=== PATIENT | female | born 1985 | race Caucasian/White ===

== ENCOUNTER 2016-12-13 13:02 | Emergency (ER) | payer OTHER, MEDICAID ==
[~2016-12-13] VITALS: Ht 170.2 cm; Wt 97.1 kg
[~2016-12-13 13:02] MED LIST: BACTRIM DS 8001 TA1 PO; BENTYL10 MG PO; BENZONATATE100 MG PO; CARAFATE1 GM/10 ML PO; CLARITIN 10MG T10 MG PO; FLINTSTONES COM1 CTB PO; KEFLEX 500MG.500 MG PO; LABETALOL 100M100 MG PO; NOMEDS *; OMEPRAZOLE20 MG PO; PREDNISONE 10MG10 MG PO; PREDNISONE 20MG20 MG PO; PROPRANOLOL HCL20 MG PO; RANITIDINE HCL150 MG PO; SEPTRA DS 800 M1 TAB PO; ZANTAC 7575 MG PO
--- NOTE | 2016-12-13 13:45 | RADIOLOGY REPORT PS360 ---
WRIST-3 VIEWS-LT COMPARISON: Right wrist 06/22/2010 HISTORY: Left wrist pain after a fall TECHNIQUE: AP lateral and oblique views FINDINGS: There is no fracture or dislocation. The soft tissues are normal. The distal radius and ulna appear normal IMPRESSION: Negative left wrist
--- NOTE | 2016-12-13 14:02 | Urgent Treatment Center Report ---
History of Present Issue Date/Time Seen by Provider 12/13/16 4749 Visit Reason Pt arrived:Walked Presenting Problem:PT FELL ON HER THIS MORNING WHILE AT WORK AND IT PINNED HER LT ARM BETWEEN THE WALL AND MOP BUCKET Location if Accident:Work Onset of symptoms date/time:/ or onset unknown for:MEDICAL HX UNKNOWN Have you (or family members/close friends) recently traveled outside the [place]? N If Yes, where/when: Have you had exposure to infectious disease within the past month? TB? Other? Specify: Patient was at work this morning when she slipped and fell at work and when she landed her left arm was pinned between the wall and mop bucket Now she is having pain in her left wrist and forearm. State that she didnt see any bruising but they had her come down and be seen to make sure she was ok and did not break anything ALLERGIES Coded Allergies: oxycodone (From Percocet) (Intermediate, I-ITCHING 02/19/16) Home Medications Reported Medications Ranitidine Hcl (Ranitidine 150MG) 150 MG PO BID PED MULTIVIT #43/IRON FUMARATE (Flintstones Complete Chew Tab) 1 CTB PO DAILY Loratadine (Claritin 10MG) 10 MG PO DAILY #30 History Medical History General CAD? No Angina: No ID: No Hypertension? No Hyperlipidemia? No CHF? No DVT? No PE? No COPD? No Asthma? No Anemia? No GERD? No Gastric ulcers? No GI Bleed? No Hernia? No Thyroid Problems? No Hypothyroidism? No CVA? No Seizures? No Diabetes? No Renal Insuffiency? No UTI? No Stones? No BPH? No GB Disease: No Nephritic Syndrome? No Asplenia? No Hepatitis? No Sickle Cell Disease? No Arthritis? No Migraines? No Cataracts? No Glaucoma? No MRSA? No HIV? No TB? No Anxiety? No Depression? No Cancer? No More? No Immunization HX DT/Tetanus 1-4 YRS Flu Refused Pneumonia Refuses Surgical Hx Previous Surgery?Y BREAST REDUCTION WISDOM TEETH Social History Smoking Hx Smoker: Never Smoker Tobacco: No Alcohol Alcohol: No Review of Systems All Other Systems Reviewed and Negative Comment Pain in left wrist and forearm after falling earlier at work and landing on arm pinning it between wall and mop bucket Physical Exam Vital Signs Vital Signs Date Time Temp Pulse Resp B/P Pulse O2 O2 Flow FiO2 Ox Delivery Rate 12/13 1337 98.2 94 20 129/85 98 General Appearance normal appearance, no apparent distress Respiratory Status Yes: trachea midline, chest symmetrical, non tender chest. No: respiratory distress. Cardiovascular normal exam, regular rate/rhythm Extremities Tenderness noted left wrist and forearm, no contusion, no abrasion, no swelling, good pulses good cap refill Neurologic alert, normal exam, oriented x 3 Medical Decision Making LABS/Meds/Orders Pt receiving controlled substance in ED? No Results/Orders Orders Procedure Date/time Status UTC STABILIZE JOINT/AREA 12/13 1357 Active Departure Departure Time of Disposition 1359 Disposition DC Home or Self Care(routine) Clinical Impression Primary Impression: Arm injury Qualifiers: Encounter type: initial encounter Laterality: left Qualified Code: S49.92XA - Unspecified injury of left shoulder and upper arm, initial encounter Condition STABLE Patient Instructions How To Perform RICE (Rest, Ice, Compress, Elevate) Additional Instructions *RICE, Rest the extremity, Ice 15-20 minutes 3-4 times daily, Compress- wear the bismark wrap as discussed as much as possible to help reduce swelling and pain, Elevate the extremity when at rest *Bismark wrap is for support and help control swelling, use it except in the shower. Be sure that is not to tight but not to loose either *Elevate when resting *Ibuprofen 600-800mg every 6-8 hours as needed for pain an inflammation. If need something more can take Tylenol in between doses of Ibuprofen to help Immediately follow up for new or worsening of symptoms, or no noticeable improvement over the next 3-5 days Over the counter Motrin or Tylenol as needed for fever or pain Follow up with family doctor if needed Discharge Counseling Counseled pt/family regarding diagnosis, test results, home care, follow up needs at 1400
[2016-12-13 14:09] VITALS: BP 129/85
--- OUTSIDE RECORDS SUMMARY | 2016-12-19 13:53 | External Medical Summary Rpt | CCD ---
Author Author , KIESHA POP Address Unknown Phone [email or web address] Support Name Relationship Address Phone HANNAH, Next Of Kin [address] [phone] , [place] [address] Purpose Continuity of Care Document - 05-12-2012 through 2016 Allergies, Adverse Reactions, Alerts Type Drug Allergy Adverse Reaction to Substance Substance Reaction Severity Oxycodone Unknown Unknown Medications Na ND Rx Da Fi Fi Am Da Di Ph RX Ph St me C No te ll ll ou ys ag ar # ys at rm s nt no ma ic us Or Da si cy ia de te s n re d SO 00 09 0 No DI 40 -2 UM 97 2- Lo 98 20 ng CH 30 13 er LO 9 RI Ac DE ti ve 0. 9% SO МАРИЯ TI ON Sa 63 09 0 No li 80 -2 ne 70 2- Lo 10 20 ng Fl 07 13 er us 5 h Ac 10 ti ML ve Sy ri ng e ON 00 09 0 No DA 64 -2 NS 16 2- Lo ET 08 20 ng RO 02 13 er N 5 HC Ac L ti 4 ve MG /2 ML AL DI 51 09 0 No CY 07 -2 CL 90 2- Lo OM 11 20 ng IN 82 13 er E 0 10 Ac ti MG ve CA PS UL E BAILON 51 03 0 No LF 07 -0 AM 90 6- Lo ET 12 20 ng HO 82 13 er XA 0 ZO Ac LE ti -T ve MP DS TA BL ET PA 51 03 0 No OM 07 -0 ET 90 6- Lo MERAZ 89 20 ng ZI 52 13 er NE 0H Ac 25 ti MG ve TA BL ET TA KE Vital Signs 11-28-2012 23:53 Name Value Interpretat Reference Comment ion Range BP 73 mm[Hg] Diastolic BP Systolic 118 mm[Hg] Heart 102 /min Rate/Pulse O2% 95 % Respiratory 20 /min Rate 11-28-2012 23:10 Name Value Interpretat Reference Comment ion Range BP 77 mm[Hg] Diastolic BP Systolic 118 mm[Hg] Heart 102 /min Rate/Pulse O2% 95 % Respiratory 20 /min Rate 05-12-2012 23:00 Name Value Interpretat Reference Comment ion Range Body 98.6 [degF] Temperature 05-12-2012 22:49 Name Value Interpretat Reference Comment ion Range BP 81 mm[Hg] Diastolic BP Systolic 127 mm[Hg] Heart 77 /min Rate/Pulse O2% 99 % Respiratory 20 /min Rate 05-12-2012 22:03 Name Value Interpretat Reference Comment ion Range BP 71 mm[Hg] Diastolic BP Systolic 134 mm[Hg] Heart 103 /min Rate/Pulse O2% 99 % Respiratory 20 /min Rate Results Labs Lab Lab Date Result Refere Interp Status Commen Order Detail nces retati t Range on COMPREHENSIVE METABOLIC PANEL (11-28-2012 23:05) Glucose 107 74-106 complet 013 mg/dL ed Bld-mCn 23:05 c BUN 10 7-18 complet Bld-mCn 013 mg/dL ed c 23:05 Creat 0.8 0.6-1.0 complet SerPl-m 013 mg/dL ed Cnc 23:05 ESTIMAT 146 50-200 complet ED 013 ML/MIN ed CREATIN 23:05 INE CLEARAN CE GFR 87 59- complet (ESTIMA 013 ML/MIN ed CRISTY) 23:05 Sodium 139 136-145 complet SerPl-s 013 mmoL/L ed Cnc 23:05 Potassi 3.7 3.5-5.1 complet um 013 mmoL/L ed SerPl-s 23:05 Cnc Chlorid 104 98-107 complet e 013 mmoL/L ed SerPl-s 23:05 Cnc CO2 26 21.0-32 complet SerPl-s 013 mmoL/L .0 ed Cnc 23:05 Calcium 8.7 8.5-10. complet 013 mg/dL 1 ed SerPl-m 23:05 Cnc Prot 7.3 6.4-8.2 complet SerPl-m 013 gm/dL ed Cnc 23:05 Albumin 3.8 3.4-5.0 complet 013 gm/dL ed SerPl-m 23:05 Cnc Globuli 09-22-2 3.5 1.3-3.2 complet n 013 gm/dL ed Ser-mCn 23:05 c Albumin 11-28-2 1.1 UNK 1.1-1.8 complet /Glob 013 ed SerPl-m 23:05 Rto Bilirub 11-28-2 0.3 0.2-1.0 complet 013 mg/dL ed SerPl-m 23:05 Cnc AST 11-28-2 9 U/L 15-37 complet SerPl-c 013 ed Cnc 23:05 ALT 11-28-2 29 U/L 30-65 complet SerPl-c 013 ed Cnc 23:05 ALP 11-28- 200 U/L 50-136 complet SerPl-c 013 ed Cnc 23:05 LIPASE (11-28-2012 23:05) LIPASE 11-28- 83 U/L 73-393 complet 013 ed 23:05 CBC with AUTO DIFF (11-28-2012 23:05) WBC # 11-28-2 12.2 4.8-10. complet Bld 013 K/MM3 8 ed Auto 23:05 RBC # 11-28-2 5.03 4.2-5.4 complet Bld 013 M/mm3 ed Auto 23:05 Hgb 11-28-2 14.5 12.2-16 complet Bld-mCn 013 g/dL .2 ed c 23:05 Hct Fr 11-28- 42.4 % 37.0-47 complet Bld 013 .0 ed 23:05 MCV RBC 11-28-2 84.2 fl 82.2-97 complet 013 .8 ed 23:05 MCH RBC 11-28-2 28.8 pg 27-31.2 complet Qn 013 ed Auto 23:05 MEAN 11-28-2 34.2 31.8-35 complet CORPUSC 013 g/dl .4 ed ULAR 23:05 HGB CONC RDW RBC 11-28-2 14.3 % 11.5-17 complet Auto 013 .5 ed 23:05 Platele 11-28-2 194 142-424 complet t Bld 013 K/mm3 ed Ql 23:05 Manual MEAN 11-28-2 7.5 fl 7.4-10. complet PLATELE 013 4 ed T 23:05 VOLUME Granulo 11-28-2 85.5 % 37.0-80 complet cytes 013 .0 ed Fr Bld 23:05 Auto LYMPH % 09-22-2 8.8 % 10-50.0 complet 013 ed 23:05 Monocyt 09-22-2 4.1 % 1.7-9.3 complet es Fr 013 ed Bld 23:05 Auto Eosinop 09-22-2 1.3 % 0.1-12. complet hil Fr 013 0 ed Bld 23:05 Auto Basophi 09-22-2 0.3 % 0.1-2.0 complet ls Fr 013 ed Bld 23:05 Auto Granulo 09-22-2 10.4 1.8-7.8 complet cytes # 013 K/mm3 ed Bld 23:05 Auto Lymphoc 09-22-2 1.1 0.7-4.5 complet ytes Fr 013 K/mm3 ed Bld 23:05 Auto Monocyt -22-2 0.5 0.1-1.0 complet es # 013 K/mm3 ed Bld 23:05 Auto Eosinop 22-2 0.2 0.0-0.4 complet hil # 013 K/mm3 ed Bld 23:05 Auto Basophi 09-22-2 0.0 0-0.2 complet ls # 013 K/MM3 ed Bld 23:05 Auto B-HCG Ur Ql (11-28-2012 23:00) B-HCG 11-28-2 NEGATIV NEG complet Ur Ql 013 E ed 23:00 URINALYSIS/COMPLETE (11-28-2012 23:00) URINE 11-28-2 YELLOW YELLOW complet COLOR 013 ed 23:00 URINE 11-28-2 CLEAR CLEAR complet APPEARA 013 ed NCE 23:00 URINE 11-28-2 NEGATIV NEG complet GLUCOSE 013 E ed - 23:00 DIPSTIC K URINE 11-28-2 NEGATIV NEG complet BILIRUB 013 E ed IN - 23:00 DIPSTIC K URINE 11-28-2 NEGATIV NEG complet KETONE 013 E mg/dL ed 23:00 URINE 11-28-2 1.020 1.005-1 complet SPECIFI 013 UNK .030 ed C 23:00 GRAVITY URINE 11-28- NEGATIV NEG complet BLOOD 013 E ed 23:00 URINE 11-28-2 6.0 UNK 5.0-8.5 complet PH 013 ed 23:00 URINE NEGATIV NEG complet PROTEIN 013 E mg/dL ed - 23:00 DIPSTIC K URINE 0.2 NEG complet UROBILI 013 E.U./dL ed NOGEN - 23:00 DIPSTIC K URINE NEGATIV NEG complet NITRATE 013 E ed - 23:00 DIPSTIC K URINE NEGATIV NEG complet LEUK 013 E ed ESTERAS 23:00 E URINE 3-5 O complet WBC 013 wbc/hpf ed 23:00 COMPREHENSIVE METABOLIC PANEL (05-12-2012 22:00) Glucose 110 74-106 complet 013 mg/dL ed Bld-mCn 22:00 c BUN 9 mg/dL 7-18 complet Bld-mCn 013 ed c 22:00 Creat 0.6 0.6-1.0 complet SerPl-m 013 mg/dL ed Cnc 22:00 ESTIMAT 186 50-200 complet ED 013 ML/MIN ed CREATIN 22:00 INE CLEARAN CE GFR 123 59- complet (ESTIMA 013 ML/MIN ed CRISTY) 22:00 Sodium 140 136-145 complet SerPl-s 013 mmoL/L ed Cnc 22:00 Potassi 3.7 3.5-5.1 complet um 013 mmoL/L ed SerPl-s 22:00 Cnc Chlorid 107 98-107 complet e 013 mmoL/L ed SerPl-s 22:00 Cnc CO2 27 21.0-32 complet SerPl-s 013 mmoL/L .0 ed Cnc 22:00 Calcium 8.2 8.5-10. complet 013 mg/dL 1 ed SerPl-m 22:00 Cnc Prot 6.6 6.4-8.2 complet SerPl-m 013 gm/dL ed Cnc 22:00 Albumin 3.4 3.4-5.0 complet 013 gm/dL ed SerPl-m 22:00 Cnc Globuli 3.2 1.3-3.2 complet n 013 gm/dL ed Ser-mCn 22:00 c Albumin 1.1 UNK 1.1-1.8 complet /Glob 013 ed SerPl-m 22:00 Rto Bilirub 0.3 0.2-1.0 complet 013 mg/dL ed SerPl-m 22:00 Cnc AST 10 U/L 15-37 complet SerPl-c 013 ed Cnc 22:00 ALT 31 U/L 30-65 complet SerPl-c 013 ed Cnc 22:00 ALP 256 U/L 50-136 complet SerPl-c 013 ed Cnc 22:00 Amylase SerPl-cCnc (05-12-2012 22:00) Amylase 62 U/L 25-115 complet 013 ed SerPl-c 22:00 Cnc LIPASE (05-12-2012 22:00) LIPASE 76 U/L 73-393 complet 013 ed 22:00 CBC with AUTO DIFF (05-12-2012 22:00) WBC # 06-2 6.2 4.8-10. complet Bld 013 K/MM3 8 ed Auto 22:00 RBC # 05-12-2 4.74 4.2-5.4 complet Bld 013 M/mm3 ed Auto 22:00 Hgb 05-12-2 13.7 12.2-16 complet Bld-mCn 013 g/dL .2 ed c 22:00 Hct Fr 39.8 % 37.0-47 complet Bld 013 .0 ed 22:00 MCV RBC 05-12- 83.9 fl 82.2-97 complet 013 .8 ed 22:00 MCH RBC 06-2 28.8 pg 27-31.2 complet Qn 013 ed Auto 22:00 MEAN 05-12-2 34.4 31.8-35 complet CORPUSC 013 g/dl .4 ed ULAR 22:00 HGB CONC RDW RBC 06-2 13.2 % 11.5-17 complet Auto 013 .5 ed 22:00 Platele 216 142-424 complet t Bld 013 K/mm3 ed Ql 22:00 Manual MEAN 7.5 fl 7.4-10. complet PLATELE 013 4 ed T 22:00 VOLUME Granulo 03-06-2 62.7 % 37.0-80 complet cytes 013 .0 ed Fr Bld 22:00 Auto LYMPH % -06-2 29.3 % 10-50.0 complet 013 ed 22:00 Monocyt 06-2 5.8 % 1.7-9.3 complet es Fr 013 ed Bld 22:00 Auto Eosinop -06-2 1.9 % 0.1-12. complet hil Fr 013 0 ed Bld 22:00 Auto Basophi 06-2 0.3 % 0.1-2.0 complet ls Fr 013 ed Bld 22:00 Auto Granulo -06-2 3.9 1.8-7.8 complet cytes # 013 K/mm3 ed Bld 22:00 Auto Lymphoc 06-2 1.8 0.7-4.5 complet ytes Fr 013 K/mm3 ed Bld 22:00 Auto Monocyt -06-2 0.4 0.1-1.0 complet es # 013 K/mm3 ed Bld 22:00 Auto Eosinop 06-2 0.1 0.0-0.4 complet hil # 013 K/mm3 ed Bld 22:00 Auto Basophi 03-06-2 0.0 0-0.2 complet ls # 013 K/MM3 ed Bld 22:00 Auto B-HCG Ur Ql (05-12-2012 21:25) B-HCG 05-12-2 NEGATIV NEG complet Ur Ql 013 E ed 21:25 URINALYSIS/COMPLETE (05-12-2012 21:25) URINE 05-12- YELLOW YELLOW complet COLOR 013 ed 21:25 URINE 05-12-2 CLEAR CLEAR complet APPEARA 013 ed NCE 21:25 URINE 05-12-2 NEGATIV NEG complet GLUCOSE 013 E ed - 21:25 DIPSTIC K URINE 05-12-2 NEGATIV NEG complet BILIRUB 013 E ed IN - 21:25 DIPSTIC K URINE 05-12-2 NEGATIV NEG complet KETONE 013 E mg/dL ed 21:25 URINE 05-12-2 Greater 1.005-1 complet SPECIFI 013 than .030 ed C 21:25 or GRAVITY equal to 1.030 URINE 05-12-2 NEGATIV NEG complet BLOOD 013 E ed 21:25 URINE 03-06-2 5.5 UNK 5.0-8.5 complet PH 013 ed 21:25 URINE 05-12-2 TRACE NEG complet PROTEIN 013 mg/dL ed - 21:25 DIPSTIC K URINE 05-12-2 0.2 NEG complet UROBILI 013 E.U./dL ed NOGEN - 21:25 DIPSTIC K URINE 2 NEGATIV NEG complet NITRATE 013 E ed - 21:25 DIPSTIC K URINE 2 1+ NEG complet LEUK 013 ed ESTERAS 21:25 E URINE 2 3-5 0 complet RBC 013 rbc/hpf ed 21:25 URINE 05-12-2 10-20 O complet WBC 013 wbc/hpf ed 21:25 URINE 05-12-2 3-5 0-5 complet SQUAMOU 013 #/hpf ed S CELLS 21:25 URINE 2 2+ O complet BACTERI 013 ed A 21:25 URINE 05-12-2 1+ OCC complet MUCUS 013 ed 21:25 Encounters Encounter Start End Date Code Location Performer Type Date Emergency SHERYL Sanchez MD (ER) 3 22:32 3 23:54 [facility] Emergency SHERYL Washington MD (ER) 3 21:28 3 23:02 [facility]
--- OUTSIDE RECORDS SUMMARY | 2016-12-19 13:53 | External Medical Summary Rpt | CCD ---
Author Author , KIESHA POP Address Unknown Phone [email or web address] Name Relationship Address Phone HANNAH, Next Of Kin [address] [phone] , [place] [address] Purpose Continuity of Care Document - 05-12-2012 [...] -T ve MP DS TA BL ET HI 51 03 0 No OM 07 -0 [...] Sanchez MD (ER) 3 22:32 3 23:54 [facility] Emergency SHERYL Washington MD (ER) 3 21:28 3 23:02 [facility]
--- OUTSIDE RECORDS SUMMARY | 2016-12-19 13:54 | External Medical Summary Rpt ---
Author Author IMELDAJUAN Quinn, KIESHA [facility] [employer] Address Unknown Phone Unavailable Results 25-Hydroxyvitamin D [Mass/volume] in Serum or Plasma Observa Value Referen Units Interpr Notes Date tion ce etation Range 25-Hydrox 30.0 - ng/mL Low Vitamin D Aug 22 yvitamin 100.0 2016 9:06 D deficienc AM [Mass/vol y has ume] in been Serum or defined Plasma by the [place] ofMedicin e and an Endocrine Society practice guideline as alevel of serum 25-OH vitamin D less than 20 ng/mL (1,2).The Endocrine Society went on to further define vitamin Dinsuffic iency as a level between 21 and 29 ng/mL (2).1. IOM (Institut e of Medicine) . 2010. Dietary reference intakes for calcium and D. [place]: TheNation al Academies Press.2. Heather MF, [place], Catarina Lester MERAZ, et al.Evalua tion, treatment , and preventio n of vitamin Ddeficien cy: an Endocrine Society clinical practiceg uideline. JCEM. 2010; 96(7):191 1-30.Perf ormed at: - [facility] [address] [address] [address] [place], [place] [id number] Machine Clerical Verifier: Fracisco Cuba PhD, Phone: [phone] Comprehensive metabolic 2000 panel in Serum or Plasma Observa Value Referen Units Interpr Notes Date tion ce etation Range Albumin/G 1.1 - 1.8 No Normal No Aug 22 lobulin informati informati 2016 9:06 [Mass on in on in AM ratio] in source source Serum or data data Plasma Albumin 3.4 - 5.0 gm/dL Normal No Aug 22 [Mass/vol informati 2017 9:06 ume] in on in AM Serum or source Plasma data Alkaline 46 - 116 U/L Normal No Aug 22 phosphata informati 2016 9:06 se on in AM [Enzymati source c data activity/ volume] in Serum or Plasma Bilirubin 0.2 - 1.0 mg/dL Normal No Aug 22 .total informati 2016 9:06 [Mass/vol on in AM ume] in source Serum or data Plasma Urea 7 - 18 mg/dL Normal No Aug 22 nitrogen informati 2017 9:06 [Mass/vol on in AM ume] in source Serum or data Plasma Calcium 8.5 - mg/dL Normal No Aug 22 [Mass/vol 10.1 informati 2016 9:06 ume] in on in AM Serum or source Plasma data Chloride 98 - 107 mmoL/L Normal No Aug 22 [Moles/vo informati 2016 9:06 lume] in on in AM Serum or source Plasma data Carbon 21.0 - mmoL/L Normal No Aug 22 dioxide, 32.0 informati 2016 9:06 total on in AM [Moles/vo source lume] in data Serum or Plasma Creatinin 0.55 - mg/dL Normal No Aug 22 e 1.02 informati 2016 9:06 [Mass/vol on in AM ume] in source Serum or data Plasma Estimated 59- ML/MIN No REFERENCE Aug 22 informati RANGE: 2017 9:06 glomerula on in >60 AM r source ML/MIN/1. filtratio data 73 SQUARE n rate METERSIf (GF this patient is -A merican, then multiply theresult by 1.210. Globulin 1.3 - 3.2 gm/dL High No Aug 22 [Mass/vol informati 2016 9:06 ume] in on in AM Serum source data Glucose 74 - 106 mg/dL Normal No Aug 22 [Mass/vol informati 2016 9:06 ume] in on in AM Serum or source Plasma data Potassium 3.5 - 5.1 mmoL/L Normal No Aug 22 informati 2016 9:06 [Moles/vo on in AM lume] in source Serum or data Plasma Sodium 136 - 145 mmoL/L Normal No Aug 22 [Moles/vo informati 2016 9:06 lume] in on in AM Serum or source Plasma data Aspartate 15 - 37 U/L Normal No Aug 22 informati 2016 9:06 aminotran on in AM sferase source [Enzymati data c activity/ volume] in Serum or Plasma Alanine 12 - 78 U/L Normal No Aug 22 aminotran informati 2016 9:06 sferase on in AM [Enzymati source c data activity/ volume] in Serum or Plasma Protein 6.4 - 8.2 gm/dL Normal No Aug 22 [Mass/vol informati 2016 9:06 ume] in on in AM Serum or source Plasma data Thyroxine (T4) free [Mass/volume] in Serum or Plasma Observa Value Referen Units Interpr Notes Date ti ce etation Range Thyroxine 0.76 - ng/dL Normal No Aug 22 (T4) 1.46 informati 2016 9:06 free on in AM [Mass/vol source ume] in data Serum or Plasma Thyrotropin [Units/volume] in Serum or Plasma Observa Value Referen Units Interpr Notes Date ti ce etation Range Thyrotrop 0.358 - uIU/ml No No Aug 22 in 3.740 informati informati 2016 9:06 [Units/vo on in on in AM lume] in source source Serum or data data Plasma
--- OUTSIDE RECORDS SUMMARY | 2016-12-19 13:54 | External Medical Summary Rpt | CCD ---
Author Author [employer] Organization [employer] Address Unknown Phone Unavailable Purpose Continuity of Care Document - through 2016
--- OUTSIDE RECORDS SUMMARY | 2016-12-19 13:54 | External Medical Summary Rpt | CCD ---
Author Author , KIESHA Organization KIESHA Address Unknown Phone [email or web address] Immunization Name Date Rout CVX Reac Dose Comm Prov Is Faci e tion ent ider Refu lity Give sed n Td 09- 9 999 Hist H149 No H149 (abrahan 9-20 oric lt), 03 al Info adso rmat rbed ion - Sour ce Unsp ecif ied Hep 02-2 8 999 Hist H149 No H149 B, 3-20 oric ped/ 01 al adol Info rmat ion - Sour ce Unsp ecif ied Hep 09-1 8 999 Hist H149 No H149 B, 8-20 oric ped/ 00 al adol Info rmat ion - Sour ce Unsp ecif ied MMR 08-1 3 999 Hist H149 No H149 7-20 oric 00 al Info rmat ion - Sour ce Unsp ecif ied Hep 08-1 8 999 Hist H149 No H149 B, 7-20 oric ped/ 00 al adol Info rmat ion - Sour ce Unsp ecif ied
--- OUTSIDE RECORDS SUMMARY | 2016-12-19 13:54 | External Medical Summary Rpt ---
Author Author IMELDAJUAN Quinn, KIESHA [employer] Address Unknown Phone Unavailable Results 25-Hydroxyvitamin D [Mass/volume] in Serum or Plasma Observa Value Referen Units Interpr Notes Date tion ce etation Range 25-Hydrox 30.0 - ng/mL Low Vitamin D Aug 22 yvitamin 100.0 2016 9:06 D deficienc AM [Mass/vol y has ume] in been Serum or defined Plasma by the [place] ofMedicin e and an Endocrine Society practice [...] 2010; 96(7):191 1-30.Perf ormed at: - [facility] [address] [address] [place], [place] [id number] Microwave Technician: Fracisco Cuba PhD, Phone: [phone] Comprehensive metabolic 2000 panel in Serum [...]
--- OUTSIDE RECORDS SUMMARY | 2016-12-19 13:54 | External Medical Summary Rpt | CCD ---
Author Author , KIESHA Organization KIESHA Address Unknown Phone [email or web address] Immunization Name Date Rout CVX Reac Dose [...]
== END 2016-12-13 14:09 | disposition home or self-care (01) ==
LOC: UTC 13:02
DX: S49.92XA Unspecified injury of left shoulder and upper arm, initial encounter (principal); W01.198A Fall on same level from slipping, tripping and stumbling with subsequent striking against other object, initial encounter; Y92.69 Other specified industrial and construction area as the place of occurrence of the external cause; Y99.0 Civilian activity done for income or pay; Z88.6 Allergy status to analgesic agent

== ENCOUNTER → 2017-01-30 | Emergency (ER) | payer MEDICAID ==
[~2017-01-30] VITALS: Ht 170.2 cm; Wt 97.1 kg
[~2017-01-30] MED LIST changes: +ZOFRAN ODT4 MG PO
--- OUTSIDE RECORDS SUMMARY | 2017-01-30 10:55 | External Medical Summary Rpt | CCD ---
Author Author , KIESHA Organization KIESHA Address Unknown Phone [email or web address] Support Name Relationship Address Phone HANNAH, Next Of Kin [address] [phone] , [place] [address] Purpose Continuity of Care Document - 05-12-2012 through 2016 Problems Code Diagnosis DOS Provider Status J02.8 ACUTE PHARYNGITIS DUE TO OTHER SPECIFIED ORGANISMS J02.9 ACUTE PHARYNGITIS , UNSPECIFIED K21.9 GASTRO-ESOP HAGEAL REFLUX DISEASE WITHOUT ESOPHAGITIS M77.9 ENTHESOPATH Y, UNSPECIFIED N39.0 URINARY TRACT INFECTION, SITE NOT SPECIFIED S00.83XA CONTUSION OF OTHER PART OF HEAD, INITIAL ENCOUNTER S83.519A SPRAIN OF ANTERIOR CRUCIATE LIGAMENT OF UNSP KNEE, INIT Z33.1 STATE, INCIDENTAL Z34.90 ENCNTR FOR SUPRVSN OF NORMAL , UNSP, UNSP TRIMESTER Allergies, Adverse Reactions, Alerts Type Drug Allergy [...] -T ve MP DS TA BL ET VA 51 03 0 No OM 07 -0 [...] 013 mmoL/L ed SerPl-s 23:05 Cnc CO2 11-28-2 26 21.0-32 complet SerPl-s 013 mmoL/L .0 ed Cnc 23:05 Calcium 11-28-2 8.7 8.5-10. complet 013 mg/dL 1 ed SerPl-m 23:05 Cnc Prot 7.3 6.4-8.2 complet SerPl-m 013 gm/dL ed Cnc 23:05 Albumin 11-28-2 3.8 3.4-5.0 complet 013 gm/dL ed SerPl-m 23:05 Cnc Globuli 3.5 1.3-3.2 complet n 013 gm/dL ed Ser-mCn 23:05 c Albumin 1.1 UNK 1.1-1.8 complet /Glob 013 ed SerPl-m 23:05 Rto Bilirub 0.3 0.2-1.0 complet 013 mg/dL ed SerPl-m 23:05 Cnc AST 9 U/L 15-37 complet SerPl-c 013 ed Cnc 23:05 ALT 29 U/L 30-65 complet SerPl-c 013 ed Cnc 23:05 ALP 200 U/L 50-136 complet SerPl-c 013 ed Cnc 23:05 LIPASE (11-28-2012 23:05) LIPASE 83 U/L 73-393 complet 013 ed 23:05 CBC with AUTO DIFF (11-28-2012 23:05) WBC # 11-28- 12.2 4.8-10. complet Bld 013 K/MM3 8 ed Auto 23:05 RBC # 11-28- 5.03 4.2-5.4 complet Bld 013 M/mm3 ed Auto 23:05 Hgb 14.5 12.2-16 complet Bld-mCn 013 g/dL .2 ed c 23:05 Hct Fr 42.4 % 37.0-47 complet Bld 013 .0 ed 23:05 MCV RBC 84.2 fl 82.2-97 complet 013 .8 ed 23:05 MCH RBC 28.8 pg 27-31.2 complet Qn 013 ed Auto 23:05 MEAN 09-22-2 34.2 31.8-35 complet CORPUSC 013 g/dl .4 [...] ed Fr Bld 23:05 Auto LYMPH % -22-2 8.8 % 10-50.0 complet 013 ed 23:05 Monocyt 11-28-2 4.1 % 1.7-9.3 complet es Fr 013 ed Bld 23:05 Auto Eosinop 22-2 1.3 % 0.1-12. complet hil Fr 013 0 ed Bld 23:05 Auto Basophi 22-2 0.3 % 0.1-2.0 complet ls Fr 013 ed Bld 23:05 Auto Granulo -22-2 10.4 1.8-7.8 complet cytes # 013 K/mm3 ed Bld 23:05 Auto Lymphoc 22-2 1.1 0.7-4.5 complet ytes Fr 013 K/mm3 ed Bld 23:05 Auto Monocyt -22-2 0.5 0.1-1.0 complet es # 013 K/mm3 ed Bld 23:05 Auto Eosinop -22-2 0.2 0.0-0.4 complet hil # 013 K/mm3 ed Bld 23:05 Auto Basophi 09-22-2 0.0 0-0.2 complet ls # 013 K/MM3 ed Bld 23:05 Auto B-HCG Ur Ql (11-28-2012 23:00) B-HCG 2 NEGATIV NEG complet Ur Ql 013 E ed 23:00 URINALYSIS/COMPLETE (11-28-2012 23:00) URINE YELLOW YELLOW complet COLOR 013 ed 23:00 URINE CLEAR CLEAR complet APPEARA 013 ed NCE 23:00 URINE 09-22-2 NEGATIV NEG complet GLUCOSE 013 E ed - 23:00 DIPSTIC K URINE NEGATIV NEG complet BILIRUB 013 E ed IN - 23:00 DIPSTIC K URINE NEGATIV NEG complet KETONE 013 E mg/dL ed 23:00 URINE 1.020 1.005-1 complet SPECIFI 013 UNK .030 ed C 23:00 GRAVITY URINE NEGATIV NEG complet BLOOD 013 E ed 23:00 URINE 6.0 UNK 5.0-8.5 complet PH 013 ed [...] 013 mmoL/L .0 ed Cnc 22:00 Calcium 03-06-2 8.2 8.5-10. complet 013 mg/dL 1 ed SerPl-m 22:00 Cnc Prot 06-2 6.6 6.4-8.2 complet SerPl-m 013 gm/dL ed Cnc 22:00 Albumin 06-2 3.4 3.4-5.0 complet 013 gm/dL ed SerPl-m 22:00 Cnc Globuli 05-12-2 3.2 1.3-3.2 complet n 013 gm/dL ed Ser-mCn 22:00 c Albumin 2 1.1 UNK 1.1-1.8 complet /Glob 013 ed SerPl-m 22:00 Rto Bilirub 05-12-2 0.3 0.2-1.0 complet 013 mg/dL ed SerPl-m 22:00 Cnc AST 05-12-2 10 U/L 15-37 complet SerPl-c 013 ed Cnc 22:00 ALT 05-12- 31 U/L 30-65 complet SerPl-c 013 ed Cnc 22:00 ALP 05-12-2 256 U/L 50-136 complet SerPl-c 013 ed Cnc 22:00 Amylase SerPl-cCnc (05-12-2012 22:00) Amylase 05-12-2 62 U/L 25-115 complet 013 ed SerPl-c 22:00 Cnc LIPASE (05-12-2012 22:00) LIPASE 05-12-2 76 U/L 73-393 complet 013 ed 22:00 CBC with AUTO DIFF (05-12-2012 22:00) WBC # 0306-2 6.2 4.8-10. complet Bld 013 K/MM3 8 ed Auto 22:00 RBC # 0306-2 4.74 4.2-5.4 complet Bld 013 M/mm3 ed Auto 22:00 Hgb 05-12-2 13.7 12.2-16 complet Bld-mCn 013 g/dL .2 ed c 22:00 Hct Fr 39.8 % 37.0-47 complet Bld 013 .0 ed 22:00 MCV RBC 05-12- 83.9 fl 82.2-97 complet 013 .8 ed 22:00 MCH RBC 05-12- 28.8 pg 27-31.2 complet Qn 013 ed Auto 22:00 MEAN 34.4 31.8-35 complet CORPUSC 013 g/dl .4 ed ULAR 22:00 HGB CONC RDW RBC 13.2 % 11.5-17 complet Auto 013 .5 ed 22:00 Platele 216 142-424 complet t Bld 013 K/mm3 ed Ql 22:00 Manual MEAN 7.5 fl 7.4-10. complet PLATELE 013 4 ed T 22:00 VOLUME Granulo 62.7 % 37.0-80 complet cytes 013 .0 ed Fr Bld 22:00 Auto LYMPH % 29.3 % 10-50.0 complet 013 ed 22:00 Monocyt 5.8 % 1.7-9.3 complet es Fr 013 ed Bld 22:00 Auto Eosinop 2 1.9 % 0.1-12. complet hil Fr 013 0 ed Bld 22:00 Auto Basophi 05-12-2 0.3 % 0.1-2.0 complet ls Fr 013 ed Bld 22:00 Auto Granulo 05-12-2 3.9 1.8-7.8 complet cytes # 013 K/mm3 ed Bld 22:00 Auto Lymphoc 2 1.8 0.7-4.5 complet ytes Fr 013 K/mm3 ed Bld 22:00 Auto Monocyt 05-12-2 0.4 0.1-1.0 complet es # 013 K/mm3 ed Bld 22:00 Auto Eosinop 05-12-2 0.1 0.0-0.4 complet hil # 013 K/mm3 ed Bld 22:00 Auto Basophi 05-12-2 0.0 0-0.2 complet ls # 013 K/MM3 ed Bld 22:00 Auto B-HCG Ur Ql (05-12-2012 21:25) B-HCG NEGATIV NEG complet Ur Ql 013 E ed 21:25 URINALYSIS/COMPLETE (05-12-2012 21:25) URINE YELLOW YELLOW complet COLOR 013 ed 21:25 URINE CLEAR CLEAR complet APPEARA 013 ed NCE 21:25 URINE 03-06-2 NEGATIV NEG complet GLUCOSE 013 E ed - 21:25 DIPSTIC K URINE 03-06-2 NEGATIV NEG complet BILIRUB 013 E ed IN - 21:25 DIPSTIC K URINE 03-06-2 NEGATIV NEG complet KETONE 013 E mg/dL ed 21:25 URINE 03-06-2 Greater 1.005-1 complet SPECIFI 013 than .030 ed C 21:25 or GRAVITY equal to 1.030 URINE 06-2 NEGATIV NEG complet BLOOD 013 E ed 21:25 URINE 03-06-2 5.5 UNK 5.0-8.5 complet PH 013 ed 21:25 URINE 03-06-2 TRACE NEG complet PROTEIN 013 mg/dL ed - 21:25 DIPSTIC K URINE 03-06-2 0.2 NEG complet UROBILI 013 E.U./dL ed NOGEN - 21:25 DIPSTIC K URINE 03-06-2 NEGATIV NEG complet NITRATE 013 E ed - 21:25 DIPSTIC K URINE 03-06-2 1+ NEG complet LEUK 013 ed ESTERAS 21:25 E URINE 03-06-2 3-5 0 complet RBC 013 rbc/hpf ed 21:25 URINE 03-06-2 10-20 O complet WBC 013 wbc/hpf ed 21:25 URINE 03-06-2 3-5 0-5 complet SQUAMOU 013 #/hpf ed S CELLS 21:25 URINE 03-06-2 2+ O complet BACTERI 013 ed A 21:25 URINE 03-06-2 1+ OCC complet MUCUS 013 ed 21:25 Encounters Encounter Start End Date Code Location Performer Type Date Emergency SHERYL Sanchez MD (ER) 3 22:32 3 23:54 [facility] SHERYL Washington MD (ER) 3 21:28 3 23:02 [facility]
--- OUTSIDE RECORDS SUMMARY | 2017-01-30 10:55 | External Medical Summary Rpt | CCD ---
Author Author , KIESHA Organization KIESHA Address Unknown Phone [email or web address] Support Name Relationship Address Phone HANNAH, Next Of Kin [address] [phone] , [place] [address] Purpose Continuity of Care Document - 05-12-2012 [...] -T ve MP DS TA BL ET ND 51 03 0 No OM 07 -0 [...] Sanchez MD (ER) 3 22:32 3 23:54 [facility] SHERYL Washington MD (ER) 3 21:28 3 23:02 [facility]
--- OUTSIDE RECORDS SUMMARY | 2017-01-30 10:56 | External Medical Summary Rpt | CCD ---
Author Author , KIESHA Organization KIESHA Address Unknown Phone [email or web address] Immunization Name Date Rout CVX Reac Dose [...]
--- OUTSIDE RECORDS SUMMARY | 2017-01-30 10:56 | External Medical Summary Rpt | CCD ---
Author Author , KIESHA Organization KIESHA Address Unknown Phone [email or web address] Immunization Name Date Rout CVX Reac Dose [...]
--- NOTE | 2017-01-30 12:01 | Urgent Treatment Center Report ---
History of Present Issue Date/Time Seen by Provider 01/30/17 1149 Visit Reason Pt arrived:Walked Presenting Problem:PT C/O OF NAUSEA X'S 4 DAYS Location if Accident: Onset of symptoms date/time:/ or onset unknown for:MEDICAL HX UNKNOWN Have you (or family members/close friends) recently traveled outside the [place]? N If Yes, where/when: Have you had exposure to infectious disease within the past month? TB? Other? Specify: c/o nausea since Thursday. Started w/ N/V/D on Thursday but withint 36 hours, V/D resolved. Has remained nauseated. Minimal PO intake "because I remain nauseated ". Decreased urination but associated that w/ decreased PO intake. Urinated twice yesterday, once so far today. Denies dysuria. No known fevers. Abdominal cramping but associated that w/ current menstrual cycle. Denies anything she would classify as abdominal pain. Hasn't taken or tried anything for symptoms. Source patient Exam Limitations no limitations ALLERGIES Coded Allergies: oxycodone (From Percocet) (Intermediate, I-ITCHING 02/19/16) Home Medications Reported Medications Ranitidine Hcl (Ranitidine 150MG) 150 MG PO BID PED MULTIVIT #43/IRON FUMARATE (Flintstones Complete Chew Tab) 1 CTB PO DAILY Loratadine (Claritin 10MG) 10 MG PO DAILY #30 History Medical History General CAD? No Angina: No [place]: No Hypertension? No Hyperlipidemia? No CHF? No DVT? No PE? No COPD? No Asthma? No Anemia? No GERD? No Gastric ulcers? No GI Bleed? No Hernia? No Thyroid Problems? No Hypothyroidism? No CVA? No Seizures? No Diabetes? No Renal Insuffiency? No UTI? No Stones? No BPH? No GB Disease: No Nephritic Syndrome? No Asplenia? No Hepatitis? No Sickle Cell Disease? No Arthritis? No Migraines? No Cataracts? No Glaucoma? No MRSA? No HIV? No TB? No Anxiety? No Depression? No Cancer? No More? No Immunization HX DT/Tetanus 1-4 YRS Flu Refused Pneumonia Refuses Surgical Hx Previous Surgery?Y BREAST REDUCTION WISDOM TEETH [place] Hx LMP 3 Weeks Ago Social History Smoking Hx Smoker: Never Smoker Tobacco: No Alcohol Alcohol: No Review of Systems All Other Systems Reviewed and Negative Constitutional see HPI, denies chills, malaise ("just general fatigue"), denies weakness Cardiovascular denies chest pain, denies palpitations Gastrointestinal see HPI Genitourinary see HPI, normal menstrual period (currently). denies: vaginal discharge ("that is abnormal"), frequency, hesitancy, pain. Musculoskeletal denies back pain, denies joint pain Skin denies rash Psychiatric/Neurological denies headache, denies other (dizziness) Physical Exam Vital Signs Vital Signs Date Time Temp Pulse Resp B/P Pulse O2 O2 Flow FiO2 Ox Delivery Rate 01/30 1059 98.1 87 20 149/81 98 General Appearance normal appearance, no apparent distress Ear, Nose, Throat pharyngeal erythema (does admit to a ST), mild nasal congestion, fernando EACs and TMs unremarkable Neck non-tender, supple Respiratory Status No: respiratory distress, productive cough, non productive cough. Lung Sounds posterior: lungs clear. bilateral: lungs clear. Cardiovascular regular rate/rhythm, no peripheral edema, no murmur Gastrointestinal normal bowel sounds, non tender, soft, no organomegaly, no pulsatile mass, no guarding, no rebound, no suprapubic tenderness, no bladder distention Back CVA tenderness (L) Neurologic alert, oriented x 3 Mental status normal mood/affect Skin normal color, warm/dry Lymphatic no adenopathy Medical Decision Making LABS/Meds/Orders Pt receiving controlled substance in ED? No Results/Orders Laboratory Tests 01/30/17 1220: Sodium 147 H, Potassium 4.0, Chloride 109 H, Carbon Dioxide 32, BUN 11, Creatinine 0.8, Estimated Creat Clear 159, Estimated GFR (MDRD) 85, Glucose 103, Calcium 8.8 01/30/17 1153: Group A Strep Screen NOT DETECTED, Urine Color RED, Urine Appearance CLEAR, Urine pH 5.5, Ur Specific [place] >= 1.030, Urine Protein 100, Urine Ketones NEGATIVE, Urine Blood LARGE, Urine Nitrate NEGATIVE, Urine Bilirubin SMALL, Urine Urobilinogen 1.0, Ur Leukocyte Esterase NEGATIVE, Urine Glucose NEGATIVE Current Medication Orders Sig/Hilda Start time Last Medication Dose Route Stop Time Status Admin Ondansetron HCl 4 MG ONCE ONE 01/30 1200 DC 01/30 IM 01/30 1201 1159 Ondansetron HCl 0 .STK-MED ONE 01/30 1158 DC .ROUTE Orders Procedure Date/time Status BASIC METABOLIC PROFILE 01/30 1215 Complete URINE 01/30 1156 Complete UTC URINE DIPSTICK 01/30 1153 Complete UTC STREP SCREEN 01/30 1153 Complete Progress UTC Progress Notes 1 Date 01/30/17 Time 1213 Comment Discussed exam, urine, strep, and likely gastroenteritis w/ pt. Agreeable to BMP to rule out effect on kidneys from not hydrating well. [facility] Progress Notes 2 Date 01/30/17 Time 1305 Comment Nausea has resolved. Ready to go home and hydrate she says. Departure Departure Time of Disposition 1309 Disposition DC Home or Self Care(routine) Clinical Impression Primary Impression: Viral gastroenteritis Condition STABLE Referrals Paloma BARNETT,Calvin (Family) IMMEDIATELY for new or worsening symptoms OR no noticeable improvement over the next 48 hours. Patient Instructions DI for Viral Gastroenteritis -- Adult Additional Instructions * Monitor Temp. Seek treatment if fever develops. * Follow up immediately for new or worsening symptoms OR no noticeable improvement over the next 48 hours. * Increase fluids now that the nausea has improved. . Water, gatorade, powerade, * No food is ok as long as you or your child is drinking. Once ready to eat, start bland. bananas, rice, applesauce, toast * Contagious until no diarrhea, vomiting, fever x 24 hours without medication * Avoid anti-diarrheals unless told otherwise. Best to let the virus run its course. Discharge Counseling Counseled pt/family regarding diagnosis, test results, medications/RX, home care, follow up needs Prescriptions Current Visit Scripts Ondansetron (Zofran 4MG Odt) 4 MG PO Q8HP PRN nausea or vomiting #9 ODT at 1312
[2017-01-30 12:16] LABS: URINE BILIRUBIN - DIPSTICK SMALL (NEG); URINE BLOOD LARGE (NEG); UTC STREP SCREEN NOT DETECTED (NOTDETECTED)
[2017-01-30 13:12] VITALS: BP 149/81
== END ==
LOC: UTC 10:50
PROVIDERS: Nurse Practitioner Family
DX: A08.4 Viral intestinal infection, unspecified (principal); Z88.6 Allergy status to analgesic agent
CPT/HCPCS: J2405